=== PATIENT | female | born 1960 | race Caucasian/White ===

== ENCOUNTER 2017-02-18 09:16 | Emergency (ER) | payer OTHER ==
[2017-02-18] MEDS ORDERED: Sodium Chloride 0.9% 1000 ML 1,000 ML IV STA (09:48)
[2017-02-18] MEDS ORDERED: Sodium Chloride 0.9% 1000 ML 1,000 ML ONE ×2 (09:54→14:03)
--- NOTE | 2017-02-18 09:54 | ERPHSYRPT ---
- History of Present Illness Time Seen by Provider: 02/18/17 09:50 Source: patient Exam Limitations: no limitations Patient Subjective Stated Complaint: pt here for being unable to void much for last 3 days and no bm for 2 days, no fever, has seen urologist in past for past for same problems Triage Nursing Assessment: pt anxious and moaning in bed, resp easy, skin w/d pink, abd soft, chest clear, Physician History: 56-year-old white female arrives with complaint of no urine for 3 days just dribbling no bowel movement for 2 days states she has some diffuse abdominal pain no vomiting no fevers. Patient states she has a history of problems with urination in the past he has seen the urologist for this. Past medical history includes hard of hearing, kidney stones. Past surgical history includes orthopedic surgery (ankle), ear surgery Timing/Duration: day(s) (3 days) Severity: moderate Modifying Factors: Improves With: nothing Associated Symptoms: abdominal pain, other (dribbling urine for 3 days, constipation x 2 days), No nausea, No vomiting, No shortness of breath, No heartburn, No diaphoresis, No cough, No chills, No chest pain, No fever, No headaches, No loss of appetite, No malaise, No rash, No syncope, No seizure, No weakness Allergies/Adverse Reactions: ceftriaxone [From Rocephin] Allergy (Verified 02/18/17 09:44) naproxen [From Naprosyn] Allergy (Verified 02/18/17 09:44) Penicillins Allergy (Verified 02/18/17 09:44) Home Medications: Cyclobenzaprine HCl 10 mg [Cyclobenzaprine 10 MG] 10 mg DAILY 02/18/17 [ History] Sumatriptan [Imitrex] 5 mg DAILY 02/18/17 [History] Tramadol HCl [Ultram 50 mg Tablet] 50 mg DAILY 02/18/17 [History] Hx Influenza Vaccination/Date Given: No Hx Pneumococcal Vaccination/Date Given: No Immunizations Up to Date: Yes - Review of Systems Constitutional: No Fever, No Chills Eyes: No Symptoms Ears, Nose, & Throat: No Symptoms, No Ear Pain, No Ear Discharge, No Hearing Changes, No Tinnitus, No Nose Pain, No Nose Congestion, No Nose Discharge, No Sinus Drainage, No Epistaxis, No Mouth Pain, No Mouth Swelling, No Loose Teeth, No Throat Pain, No Throat Swelling, No Hoarse, No Painful Swallowing, No Snoring , No Stridor Respiratory: No Cough, No Dyspnea Cardiac: No Symptoms Abdominal/Gastrointestinal: Abdominal Pain, Constipation, No Nausea, No Vomiting , No Diarrhea, No Hematemesis, No Hematochezia, No Melena, No Dysphagia, No Appetite Changes Genitourinary Symptoms: Urinary Retention, No Dysuria, No Frequency, No Hematuria, No Hesitancy, No Incontinence, No Urgency, No Flank Pain, No Menorrhagia, No , No Vaginal Bleeding, No Vaginal Discharge, No Vaginal Itching Musculoskeletal: No Back Pain, No Neck Pain Skin: No Rash Neurological: No Dizziness, No Focal Weakness, No Sensory Changes Psychological: No Symptoms Endocrine: No Symptoms All Other Systems: Reviewed and Negative - Past Medical History Pertinent Past Medical History: Yes Other Medical History: [place], kidney stones - Past Surgical History Past Surgical History: Yes Musculoskeletal: Orthopedic Surgery Female Surgical History: Section Other Surgical History: ankle surg, ear surg - Social History Smoking Status: Current every day smoker Exposure to second hand smoke: Yes Drug Use: none Patient Lives Alone: No - Female History Hx Last Menstrual Period: post Hx Now: No - Nursing Vital Signs Nursing Vital Signs: Initial Vital Signs Temperature 98.4 F 02/18/17 09:30 Pulse Rate 90 02/18/17 09:30 Respiratory Rate 22 02/18/17 09:30 Blood Pressure 141/85 02/18/17 09:30 O2 Sat by Pulse Oximetry 96 02/18/17 09:30 Pain Scale Pain Intensity 7 - Physical Exam General Appearance: mild distress Eye Exam: PERRL/EOMI, eyes nml inspection Ears, Nose, Throat Exam: normal ENT inspection Neck Exam: normal inspection, non-tender, supple, full range of motion Respiratory Exam: normal breath sounds, lungs clear, No respiratory distress Cardiovascular Exam: regular rate/rhythm, normal heart sounds, normal peripheral pulses Gastrointestinal/Abdomen Exam: soft, normal bowel sounds, tenderness (mild diffuse tenderness) Back Exam: normal inspection, normal range of motion, No CVA tenderness, No vertebral tenderness Extremity Exam: normal inspection, normal range of motion, pelvis stable Neurologic Exam: alert, oriented x 3, cooperative, normal mood/affect, nml cerebellar function, nml station & gait, sensation nml, No motor deficits Skin Exam: normal color, warm, dry, No rash Lymphatic Exam: No adenopathy SpO2 Interpretation: normal (96%) SpO2: 96 Oxygen Delivery: Room Air - Course Nursing assessment & vital signs reviewed: Yes - CT Exams Abdomen/Pelvis CT Interpretation: Discussed w/radiologist (CT abdomen and pelvis without contrast: Impression 2 distal left ureteral calculi producing high-grade obstruction. Additional bilateral renal calculi and a Walker catheter in situ. 2. Pancreatic tail microcalcifications presumed from chronic pancreatitis) Ordered Tests: Active Orders 24 hr Category Date Time Status Catheter-[place] Walker STAT Care 02/18/17 09:48 Active IV Insertion STAT Care 02/18/17 09:48 Active ABDOMEN AND PELVIS W/0 CONTRAS [CT] Stat Exams 02/18/17 10:38 Completed AMYLASE Stat Lab 02/18/17 09:55 Completed CBC W DIFF Stat Lab 02/18/17 09:55 Completed CMP Stat Lab 02/18/17 09:55 Completed CULTURE,URINE Stat Lab 02/18/17 10:15 Received HCG QUALITATIVE,SERUM Stat Lab 02/18/17 09:55 Completed LIPASE Stat Lab 02/18/17 09:55 Completed UA W/ MICROSCOPIC Stat Lab 02/18/17 10:15 Completed Medication Summary Generic Name Dose Route Start Last Admin Trade Name Freq PRN Reason Stop Dose Admin Levofloxacin/Dextrose 500 mg in 100 mls @ 100 mls/hr 02/18/17 13:22 02/18/17 13:57 Levofloxacin 500mg/100ml D5w IV 02/18/17 14:21 100 mls/hr STAT STA Administration Sodium Chloride 1,000 mls @ 100 mls/hr 02/18/17 14:15 02/18/17 14:05 Sodium Chloride 0.9% 1000 Ml IV 03/20/17 14:14 100 mls/hr .Q10H KEENAN Administration Discontinued Medications Generic Name Dose Route Start Last Admin Trade Name Freq PRN Reason Stop Dose Admin Sodium Chloride 1,000 mls @ 999 mls/hr 02/18/17 09:48 02/18/17 09:55 Sodium Chloride 0.9% 1000 Ml IV 02/18/17 10:48 999 mls/hr .Q1H1M STA Administration Sodium Chloride Confirm 02/18/17 09:54 Sodium Chloride 0.9% 1000 Ml Administered 02/18/17 09:55 Dose 1,000 mls @ ud .ROUTE .STK-MED ONE Levofloxacin/Dextrose Confirm 02/18/17 13:54 Levofloxacin 500mg/100ml D5w Administered 02/18/17 13:55 Dose 500 mg in 100 mls @ ud IV .STK-MED ONE Morphine Sulfate 4 mg 02/18/17 10:02 02/18/17 10:34 Morphine Sulfate 4 Mg Inj IV 02/18/17 10:03 4 mg STAT ONE Administration Morphine Sulfate Confirm 02/18/17 10:34 Morphine Sulfate 4 Mg Inj Administered 02/18/17 10:35 Dose 4 mg .ROUTE .STK-MED ONE Morphine Sulfate 4 mg 02/18/17 11:40 02/18/17 11:45 Morphine Sulfate 4 Mg Inj IV 02/18/17 11:41 4 mg STAT ONE Administration Morphine Sulfate Confirm 02/18/17 11:44 Morphine Sulfate 4 Mg Inj Administered 02/18/17 11:45 Dose 4 mg .ROUTE .STK-MED ONE Morphine Sulfate 4 mg 02/18/17 14:02 02/18/17 14:07 Morphine Sulfate 4 Mg Inj IV 02/18/17 14:03 4 mg STAT ONE Administration Morphine Sulfate Confirm 02/18/17 14:03 Morphine Sulfate 4 Mg Inj Administered 02/18/17 14:04 Dose 4 mg .ROUTE .STK-MED ONE Ondansetron HCl 4 mg 02/18/17 10:02 02/18/17 10:34 Zofran 4 Mg/2 Ml Vial IV 02/18/17 10:03 4 mg STAT ONE Administration Ondansetron HCl Confirm 02/18/17 10:34 Zofran 4 Mg/2 Ml Vial Administered 02/18/17 10:35 Dose 4 mg .ROUTE .STK-MED ONE Lab/Rad Data: Laboratory Result Diagrams 02/18/17 09:55 02/18/17 09:55 Laboratory Results 02/18/17 02/18/17 02/18/17 Range/Units 10:15 09:55 09:55 WBC (4.0-10.5) K/mm3 RBC (4.1-5.4) M/mm3 Hgb (12.0-16.0) gm/dl Hct (35-47) % MCV (78-100) fl MCH (26-32) pg MCHC (32-36) g/dl RDW (11.5-14.0) % Plt Count (150-450) K/mm3 MPV (6-9.5) fl Gran % (36.0-66.0) % Lymphocytes % (24.0-44.0) % Monocytes % (0.0-12.0) % Eosinophils % (0.00-5.0) % Basophils % (0.0-0.4) % Basophils # (0-0.4) Sodium 140 (136-145) mEq/L Potassium 3.4 L (3.5-5.1) mEq/L Chloride 105 (98-107) mEq/L Carbon Dioxide 26.7 (21-32) mEq/L Anion Gap 12.1 (5-15) MEQ/L BUN 13 (9-20) mg/dL Creatinine 0.98 (0.55-1.30) mg/dl Estimated GFR > 60 ML/MIN Glucose 127 H (70-110) MG/DL Calcium 9.2 (8.5-10.1) mg/dL Total Bilirubin 0.60 (0.2-1.0) mg/dL AST 16 (15-37) U/L ALT 25 (12-78) U/L Alkaline Phosphatase 126 H (46-116) U/L Serum Total Protein 7.4 (6.4-8.2) gm/dL Albumin 3.5 (3.4-5.0) g/dL Amylase 38 (25-115) U/L Lipase 83 (73-393) U/L Serum , Qual NEGATIVE (Negative) Ur Collection Type CATH Urine Color YELLOW (YELLOW) Urine Appearance CLOUDY (CLEAR) Urine pH 7.0 (5-6) Ur Specific [place] 1.010 (1.005-1.025) Urine Protein 100 (Negative) Urine Ketones NEGATIVE (NEGATIVE) Urine Blood 250 (0-5) Teofilo/ul Urine Nitrite NEGATIVE (NEGATIVE) Urine Bilirubin NEGATIVE (NEGATIVE) Urine Urobilinogen NORMAL (0-1) mg/dL Ur Leukocyte Esterase 2+ (NEGATIVE) Urine Microscopic RBC 2-5 (0-2) /HPF Urine Microscopic WBC 15-25 (0-5) /HPF Ur Epithelial Cells FEW (FEW) /HPF Urine Bacteria PACKED (NEGATIVE) /HPF Urine Mucus SLIGHT (NEGATIVE) /HPF Urine Culture Reflexed YES (NO) Urine Glucose NEGATIVE (NEGATIVE) mg/dL Specimen Received -14 1000 02/18/17 Range/Units 09:55 WBC 16.1 H (4.0-10.5) K/mm3 RBC 4.55 (4.1-5.4) M/mm3 Hgb 13.2 (12.0-16.0) gm/dl Hct 40.5 (35-47) % MCV 89.0 (78-100) fl MCH 29.0 (26-32) pg MCHC 32.6 (32-36) g/dl RDW 14.0 (11.5-14.0) % Plt Count 249 (150-450) K/mm3 MPV 10.0 H (6-9.5) fl Gran % 84.5 H (36.0-66.0) % Lymphocytes % 8.8 L (24.0-44.0) % Monocytes % 6.2 (0.0-12.0) % Eosinophils % 0.3 (0.00-5.0) % Basophils % 0.2 (0.0-0.4) % Basophils # 0.03 (0-0.4) Sodium (136-145) mEq/L Potassium (3.5-5.1) mEq/L Chloride (98-107) mEq/L Carbon Dioxide (21-32) mEq/L Anion Gap (5-15) MEQ/L BUN (9-20) mg/dL Creatinine (0.55-1.30) mg/dl Estimated GFR ML/MIN Glucose (70-110) MG/DL Calcium (8.5-10.1) mg/dL Total Bilirubin (0.2-1.0) mg/dL AST (15-37) U/L ALT (12-78) U/L Alkaline Phosphatase (46-116) U/L Serum Total Protein (6.4-8.2) gm/dL Albumin (3.4-5.0) g/dL Amylase (25-115) U/L Lipase (73-393) U/L Serum , Qual (Negative) Ur Collection Type Urine Color (YELLOW) Urine Appearance (CLEAR) Urine pH (5-6) Ur Specific [place] (1.005-1.025) Urine Protein (Negative) Urine Ketones (NEGATIVE) Urine Blood (0-5) Teofilo/ul Urine Nitrite (NEGATIVE) Urine Bilirubin (NEGATIVE) Urine Urobilinogen (0-1) mg/dL Ur Leukocyte Esterase (NEGATIVE) Urine Microscopic RBC (0-2) /HPF Urine Microscopic WBC (0-5) /HPF Ur Epithelial Cells (FEW) /HPF Urine Bacteria (NEGATIVE) /HPF Urine Mucus (NEGATIVE) /HPF Urine Culture Reflexed (NO) Urine Glucose (NEGATIVE) mg/dL Specimen Received - Progress Progress: improved Progress Note: 02/18/17 13:23 56-year-old white female complains of left-sided abdominal pain no urine out for [address] of the patient's abdomen and pelvis show to distal left ureteral calculi producing high-grade obstruction I've discussed case with Dr. De Los Santos, Dr. Urias. They state that they will plan on accepted the patient for admission with Dr. Lozano to accept patient is hospitalist. Patient has received IV's fluids IV morphine urine has been cultured Will give patient Levaquin [address] Urias has requested that the patient be kept nothing by mouth cannot be given any blood thinners. Will plan on transfer to [facility] once we hear from Dr. Lozano 02/18/17 13:59 Case is discussed with Dr. Lozano, hospitalist at [facility] he has accepted patient for transfer. hospital transfer center will call with a bed - Departure Time of Disposition: 14:00 Departure Disposition: Transfer Clinical Impression: Abdominal pain Qualifiers: Abdominal location: generalized Qualified Code(s): R10.84 - Generalized abdominal pain Urolithiasis Qualifiers: Urinary calculus location: ureter Qualified Code(s): N20.1 - Calculus of ureter Hydronephrosis Qualifiers: Hydronephrosis type: with ureteral calculous obstruction Qualified Code(s): N13.2 - Hydronephrosis with renal and ureteral calculous obstruction Condition: Fair Critical Care Time: No Referrals: DOCTOR,NO FAMILY [Primary Care Provider] -
[2017-02-18] MEDS ORDERED: Zofran 4 MG/2 ML VIAL IV ONE (10:02)
[2017-02-18] MEDS ORDERED: MORPHINE SULFATE 4 MG INJ IV ONE ×3 (10:02→14:02)
[2017-02-18 10:09] LABS: BASOPHIL % 0.2 % (0.0-0.4); Eosinophil % 0.3 % (0.00-5.0); Granulocytes % 84.5 % (36.0-66.0); Lymphocytes % 8.8 % (24.0-44.0); Monocytes % 6.2 % (0.0-12.0); Platelet Count 249 K/mm3 (150-450); Red Blood Count 4.55 M/mm3 (4.1-5.4); White Blood Count 16.1 K/mm3 (4.0-10.5)
[2017-02-18 10:23] LABS: ALBUMIN 3.5 g/dL (3.4-5.0); ALKALINE PHOSPHATASE 126 U/L (46-116); ANION GAP 12.1 MEQ/L (5-15); BLOOD UREA NITROGEN 13 mg/dL (9-20); CHLORIDE 105 mEq/L (98-107); Carbon Dioxide 26.7 mEq/L (21-32); Glucose 127 MG/DL (70-110); LIPASE 83 U/L (73-393); Potassium 3.4 mEq/L (3.5-5.1); SGOT/AST 16 U/L (15-37); SGPT/ALT 25 U/L (12-78); SODIUM 140 mEq/L (136-145); Total Protein 7.4 gm/dL (6.4-8.2)
[2017-02-18] MEDS ORDERED: MORPHINE SULFATE 4 MG INJ ONE ×3 (10:34→14:03)
[2017-02-18] MEDS ORDERED: Zofran 4 MG/2 ML VIAL ONE (10:34)
[2017-02-18 10:50] LABS: ADD URINE CULTURE? YES (NO); Bacteria PACKED /HPF (NEGATIVE); Bilirubin NEGATIVE (NEGATIVE); Blood 250 Ery/ul (0-5); COMPLETE URINE MICROSCOPIC? YES; Collection Type CATH; Epithelial Cells FEW /HPF (FEW); Glucose NEGATIVE (NEGATIVE); Leukocyte Esterase 2+ (NEGATIVE); Mucus SLIGHT /HPF (NEGATIVE); WBC 15-25 /HPF (0-5)
--- NOTE | 2017-02-18 11:32 | XRAY ---
Indication: Left flank pain 3 days. Multiple contiguous axial images obtained through the abdomen and pelvis without contrast as ordered. Comparison: None Lung bases demonstrates moderate bibasilar dependent atelectasis/scarring and right middle lobe discoid atelectasis. Heart is not enlarged. Distal left ureter proximal to the UVJ demonstrates 2 subcentimeter calculi, largest 8mm. The more proximal left ureter is prominent up to 8 mm and there is moderate hydronephrosis with mild perinephric stranding consistent with high-grade obstructive uropathy. Additional multiple bilateral renal calculi, largest on the right measuring 7 mm. No evidence for right-sided obstructive uropathy. A Walker catheter empties the urinary bladder. Noncontrasted stomach and bowel loops appear nonobstructed. Normal appendix. No free fluid/air. A few pancreatic microcalcifications presumed from chronic pancreatitis. Remaining liver, gallbladder, pancreas, spleen, adrenal glands, and uterus appear unremarkable for noncontrast exam. Mild aortoiliac calcifications without AAA. Osseous structures intact with mild dextroscoliosis centered at the thoracolumbar junction. Impression: 1. 2 distal left ureteral calculi producing high-grade obstruction as detailed. Additional bilateral renal calculi and a Walker catheter in situ. 2. Pancreatic tail microcalcifications presumed from chronic pancreatitis. CT DI 20.54
[2017-02-18] MEDS ORDERED: Levofloxacin 500MG/100ML D5W 500 MG/100 ML BAG IV STA (13:22)
[2017-02-18] MEDS ORDERED: Levofloxacin 500MG/100ML D5W 500 MG/100 ML BAG IV ONE (13:54)
[2017-02-18 14:15] VITALS: BP 125/80; PULSE 102
[2017-02-18] MEDS ORDERED: Sodium Chloride 0.9% 1000 ML 1,000 ML IV SCH (14:15)
[2017-02-18 14:17] VITALS: O2SAT 96
== END 2017-02-18 15:01 | disposition home or self-care (01) ==
LOC: ED 09:16
DX: R10.84 Generalized abdominal pain (principal); N20.1 Calculus of ureter; N13.2 Hydronephrosis with renal and ureteral calculous obstruction; Z79.899 Other long term (current) drug therapy
CPT/HCPCS: 36000; 36415; 51702; 74176; 80053; 81000; 82150; 83690; 84703; 85025; 87086; 96360; 96361; 96374; 96375; 99285; J1956; J2270; J2405

== ENCOUNTER 2018-07-11 09:33 | Emergency (ER) | payer OTHER ==
[2018-07-11 09:44] VITALS: PULSE 86; O2SAT 97
[2018-07-11] MEDS ORDERED: XYLOCAINE VISCOUS 2% 20 ML CUP PO ONE (09:48)
[2018-07-11] MEDS ORDERED: CLEOCIN 150 MG CAPSULE PO ONE (09:48)
[2018-07-11] MEDS ORDERED: CLEOCIN 150 MG CAPSULE ONE (09:53)
[2018-07-11] MEDS ORDERED: XYLOCAINE HCl Viscous ONE (09:54)
--- NOTE | 2018-07-11 09:57 | ERPHSYRPT ---
- History of Present Illness Time Seen by Provider: 07/11/18 09:50 Source: patient Patient Subjective Stated Complaint: left bottom back of mouth swollen Triage Nursing Assessment: Pt walked into the ER holding the left side of her mouth, jaw is swollen and rates pain 8/10, no other issues at this time Physician History: mild to mod left lower dental ache since Wednesday, constant, nonrad, no fever, no injury, speech fluent, no drooling Allergies/Adverse Reactions: ceftriaxone [From Rocephin] Allergy (Verified 07/11/18 09:45) naproxen [From Naprosyn] Allergy (Verified 07/11/18 09:45) Penicillins Allergy (Verified 07/11/18 09:45) Home Medications: Sumatriptan [Imitrex] 5 mg DAILY 02/18/17 [History] Tramadol HCl [Ultram 50 mg Tablet] 50 mg DAILY 02/18/17 [History] Tamsulosin HCl 0.4 mg [Flomax 0.4 MG] 0.4 mg PO DAILY 07/11/18 [History] Hx Influenza Vaccination/Date Given: No Hx Pneumococcal Vaccination/Date Given: No - Review of Systems Constitutional: No Fever Eyes: No Vision Changes Ears, Nose, & Throat: Mouth Pain Respiratory: No Dyspnea Cardiac: No Chest Pain Abdominal/Gastrointestinal: No Abdominal Pain Musculoskeletal: No Neck Pain Skin: No Rash Neurological: No Dizziness - Past Medical History Pertinent Past Medical History: Yes Other Medical History: [place], kidney stones - Past Surgical History Past Surgical History: Yes Musculoskeletal: Orthopedic Surgery Female Surgical History: Section Other Surgical History: ankle surg, ear surg - Social History Smoking Status: Current every day smoker How long have you smoked: 32 years Exposure to second hand smoke: Yes Drug Use: none Patient Lives Alone: No - Female History Hx Now: No - Nursing Vital Signs Nursing Vital Signs: Initial Vital Signs Temperature 98.7 F 07/11/18 09:37 Pulse Rate 86 07/11/18 09:37 Blood Pressure 145/101 07/11/18 09:37 O2 Sat by Pulse Oximetry 97 07/11/18 09:37 Pain Scale Pain Intensity 8 - Physical Exam General Appearance: no apparent distress Eye Exam: eyes nml inspection Ears, Nose, Throat Exam: other (tender sts lower left dental margin, no fluc mass, no trismus) Neck Exam: full range of motion, No non-tender Respiratory Exam: No respiratory distress Neurologic Exam: alert, oriented x 3 Skin Exam: normal color, warm, dry SpO2: 97 - Course Nursing assessment & vital signs reviewed: Yes Ordered Tests: Medication Summary Discontinued Medications Generic Name Dose Route Start Last Admin Trade Name Freq PRN Reason Stop Dose Admin Clindamycin HCl 300 mg 07/11/18 09:48 Cleocin 150 Mg Capsule PO 07/11/18 09:49 STAT ONE Lidocaine HCl 20 ml 07/11/18 09:48 Xylocaine Viscous 2% 20 Ml Cup PO 07/11/18 09:49 STAT ONE - Progress Progress: improved - Departure Departure Disposition: Home Clinical Impression: Pain, dental Condition: Stable Critical Care Time: No Additional Instructions: see a dentist, return if worse, viscus lidocaine topical, cleocin Prescriptions: Clindamycin HCl [Cleocin HCl] 300 mg PO BID 10 Days #20 capsule
[2018-07-11 10:22] VITALS: BP 140/99
== END 2018-07-11 10:22 | disposition home or self-care (01) ==
LOC: ED 09:33
DX: K08.89 Other specified disorders of teeth and supporting structures (principal)
CPT/HCPCS: 99283; A9270-GY

== ENCOUNTER 2019-07-16 13:20 | Emergency (ER) | payer OTHER ==
[2019-07-16 14:27] VITALS: BP 138/90; PULSE 82; O2SAT 99
--- NOTE | 2019-07-16 14:31 | ERPHSYRPT ---
- History of Present Illness Time Seen by Provider: 07/16/19 13:27 Source: patient Exam Limitations: no limitations Patient Subjective Stated Complaint: Left ankle injury/pain Triage Nursing Assessment: Patient brought back to ED and transferred self to bed. Patient A+O X3. Patient's skin pink, warm and dry. Patient complains of left ankle pain after falling. Patient states she was walking without her cane and fell off her step. Patient states pain is constant sharp pain 10/10. Swelling noted to left lateral ankle. Physician History: Failed to use cane fell injuring L ankle. C/O pain and swelling lateral malleolus unable to bear wt. occurred JPTA arrived by PV. Method of Injury: fell Occurred: just prior to arrival Quality: constant Severity of Pain-Max: moderate Severity of Pain-Current: moderate Lower Extremities Pain: ankle: left (tender swollen decreased ROM) Modifying Factors: Improves With: movement Associated Symptoms: unable to bear weight Allergies/Adverse Reactions: acetaminophen [From [place]] Allergy (Verified 07/16/19 13:24) ceftriaxone [From Rocephin] Allergy (Verified 07/11/18 09:45) hydrocodone [From [place]] Allergy (Verified 07/16/19 13:24) naproxen [From Naprosyn] Allergy (Verified 07/11/18 09:45) Penicillins Allergy (Verified 07/11/18 09:45) Home Medications: Tramadol HCl [Ultram 50 mg Tablet] 50 mg DAILY 02/18/17 [History] Tamsulosin HCl 0.4 mg [Flomax 0.4 MG] 0.4 mg PO DAILY 07/11/18 [History] Hx Influenza Vaccination/Date Given: No Hx Pneumococcal Vaccination/Date Given: No Immunizations Up to Date: Yes Travel Risk - International Travel Have you traveled outside of the country in past 3 weeks: No (N) If Yes where:: [place] - Coronavirus Screening Has patient experienced Coronavirus symptoms: No - Review of Systems Constitutional: No Fever, No Chills Eyes: No Symptoms Ears, Nose, & Throat: No Symptoms Respiratory: No Cough, No Dyspnea Cardiac: No Chest Pain, No Edema, No Syncope Abdominal/Gastrointestinal: No Abdominal Pain, No Nausea, No Vomiting, No Diarrhea Genitourinary Symptoms: No Dysuria Musculoskeletal: No Back Pain, No Neck Pain Skin: No Rash Neurological: No Dizziness, No Focal Weakness, No Sensory Changes Psychological: No Symptoms Endocrine: No Symptoms All Other Systems: Reviewed and Negative - Past Medical History Pertinent Past Medical History: Yes Other Medical History: [place], kidney stones - Past Surgical History Past Surgical History: Yes Musculoskeletal: Orthopedic Surgery Female Surgical History: Section Other Surgical History: ankle surg, ear surg, unknown surgery to right elbow - Social History Smoking Status: Current every day smoker How long have you smoked: 32 years Exposure to second hand smoke: Yes Drug Use: none Patient Lives Alone: No - Female History Hx Now: No - Nursing Vital Signs Nursing Vital Signs: Pain Scale Pain Intensity 10 - Physical Exam General Appearance: alert Eyes, Ears, Nose, Throat Exam: moist mucous membranes Neck Exam: non-tender, supple Cardiovascular/Respiratory Exam: chest non-tender, normal breath sounds, regular rate/rhythm, no respiratory distress Gastrointestinal/Abdominal Exam: non-tender, guarding Back Exam: normal inspection, No vertebral tenderness Hips Exam: bilateral: non-tender, normal inspection, normal range of motion Legs Exam: bilateral leg: non-tender, normal inspection, normal range of motion Knees Exam: bilateral knee: non-tender, normal inspection, normal range of motion Ankle Exam: left ankle: bone tenderness, joint effusion, limited range of motion , pain, soft tissue tenderness, swelling Foot Exam: bilateral foot: non-tender, normal inspection, normal range of motion DTR - Lower Extremities Exam: knee (R): 2+, knee (L): 2+ Neuro/Tendon Exam: normal sensation, normal motor functions Mental Status Exam: alert, oriented x 3, cooperative Skin Exam: normal color, warm, dry SpO2 Interpretation: normal O2 Delivery: Room Air Procedures - Splinting Location of Splint: Ankle Type of Splint: Orthoglass Short Leg Splint Splint Applied By: ED Nurse Pre-Proc Neuro Vasc Exam: normal Post-Proc Neuro Vasc Exam: neurovascular intact, unchanged from pre-exam - Course Nursing assessment & vital signs reviewed: Yes - Radiology Exams Left Ankle X-ray Interpretation: Interpreted by me (avulsion Fx Distal L fibula) Ordered Tests: Active Orders 24 hr Category Date Time Status ANKLE (3 VIEWS) Stat Exams 07/16/19 13:54 Taken - Progress Progress: improved - Departure Departure Disposition: Home Clinical Impression: Avulsion fracture of anterior fibula Condition: Stable Critical Care Time: No Referrals: CHRISTIANA LUTHER [Primary Care Provider] - Instructions: Ankle Fracture (DC)
--- NOTE | 2019-07-16 19:21 | XRAY ---
Indication: Lateral malleolus swelling. Comparison: None 3 view left ankle demonstrates nondisplaced lateral malleolus tip fracture with anterolateral soft tissue swelling. Incidental large posterior and small plantar heel spurs. No other bony, articular, or soft tissue abnormalities.
== END 2019-07-16 15:09 | disposition home or self-care (01) ==
LOC: ED 13:20
DX: S52.501A Unspecified fracture of the lower end of right radius, initial encounter for closed fracture (principal); S82.492A Other fracture of shaft of left fibula, initial encounter for closed fracture; W19.XXXA Unspecified fall, initial encounter; Y93.9 Activity, unspecified; Y92.9 Unspecified place or not applicable; M25.572 Pain in left ankle and joints of left foot
CPT/HCPCS: 29515; 73610; 99284